=== PATIENT | female | born 1955 | race Caucasian/White ===

== ENCOUNTER 2020-02-18 16:36 | Observation (INO) ==
[2020-02-18] MEDS ORDERED: IOPAMIDOL 100 ML BOTTLE IV ONE (16:37)
--- NOTE | 2020-02-18 16:44 | Emergency Department Note ---
Neuro HPI General Chief Complaint: Stroke Symptoms Stated Complaint: confusion Time Seen by Provider: 02/18/20 16:41 Source: patient, family and RN notes reviewed Mode of arrival: ambulatory History of Present Illness HPI Narrative: Narrative: This patient started having trouble with her memory about an hour ago. She is supposed to have company coming over and could remember that. Could not remember that she had gotten a valid in the mail. Cannot remember which day it is. She said no focal neurologic weakness numbness or tingling. No headache no visual changes. Onset (ago): minute(s) Timing confirmed by: spouse Location: other (Memory) History of same: No Severity: moderate Improves with: none Worsens with: none On Anticoagulants: No Associated symptoms: Reports denies other symptoms Related Data Home Medications Medication Instructions Recorded Confirmed levothyroxine 150 mcg PO QDAY 02/18/20 02/18/20 losartan 25 mg PO QHS 02/18/20 02/18/20 venlafaxine 75 mg PO Q48H 02/18/20 02/18/20 Allergies Allergy/AdvReac Type Severity Reaction Status Date / Time Penicillins Allergy Verified 02/18/20 16:45 Review of Systems ROS ROS Narrative: Narrative: All systems ED: reviewed and negative except as stated. [facility] Narrative Patient History Narrative: Narrative: Medical/Surgical/Family History All Active Problems (Updated 02/19/20 @ 07:27 by Camden Cole MD) Acute CVA (cerebrovascular accident) (Acute) Medical History (Updated 02/19/20 @ 07:27 by Camden Cole MD) Hypertension (Acute) Exam Narrative Narrative: Narrative: Head Head: Present atraumatic, normocephalic and normal inspection Eye Eye: Present normal appearance, PERRL and EOMI; Absent scleral icterus and conjunctival injection ENT ENT: Present normal exam, normal oropharynx and mucous membranes moist Neck Neck: Present normal inspection and full ROM Chest Chest: Present normal inspection and symmetric chest wall rise Respiratory Respiratory: Present normal lung sounds bilaterally; Absent respiratory distress, rales/crackles and wheezes Cardiovascular Cardiovascular: Present regular rate, normal rhythm and normal heart sounds Adbominal Abdominal: Present soft; Absent distention and tenderness Extremities Extremities: Present normal inspection and full ROM; Absent pedal edema and pretibial edema Neurological Neurological: Present alert Expanded Neurological Speech: Present fluid speech CRANIAL NERVES: facial sensation (V): Normal and facial palsy (VII): Normal Motor strength - LUE: 5/5 Motor strength - RUE: 5/5 Motor strength - LLE: 5/5 Motor strength - RLE: 5/5 Psychiatric Psychiatric: Present normal affect Skin Skin: Present warm (WNL) and dry; Absent diaphoresis Course Vital Signs Vital signs: Vital Signs Temperature 96.9 F L 02/18/20 16:37 Pulse Rate 99 H 02/18/20 16:37 Respiratory Rate 16 02/18/20 16:37 Blood Pressure 178/106 02/18/20 16:37 Pulse Oximetry (%) 98 02/18/20 16:37 Temperature 98.2 F 02/19/20 04:01 Pulse Rate 68 02/19/20 05:40 Respiratory Rate 14 02/19/20 05:40 Blood Pressure 129/79 02/19/20 04:01 Pulse Oximetry (%) 99 02/19/20 05:40 MDM MDM Narrative Medical decision making narrative: Narrative: 1699 -this patient could not even remember that she just had a CAT scan. I reviewed the case with the stroke neurologist who interviewed the patient and felt that she was not a TPA candidate. She will be admitted to the hospital here by Dr. Larose. Lab Data Lab results reviewed: Yes I reviewed the patient's lab results. Result diagrams: 02/18/20 16:50 02/19/20 05:05 Labs: Lab Results 02/18/20 02/18/20 02/18/20 Range/Units 16:50 16:50 16:50 WBC 5.6 (4.5-11.0) K/mcL RBC 4.09 (4.00-5.20) M/mcL Hgb 11.8 L (12.0-15.0) g/dL Hct 35.2 L (36.0-48.0) % MCV 86.1 (80.0-100.0) fL MCH 28.9 (26.0-34.0) pg MCHC 33.5 (31.0-36.0) g/dL RDW 15.0 H (11.5-14.5) % Plt Count 294 (140-440) K/mcL MPV 9.6 (7.4-10.4) fL Neut % (Auto) 52.4 (38.0-78.0) % Lymph % (Auto) 32.4 (15.0-49.0) % [place] % (Auto) 11.8 (1.0-12.0) % Eos % (Auto) 2.7 (0.0-7.0) % Baso % (Auto) 0.7 (0.0-2.0) % Lymph # (Auto) 1.82 (1.50-4.80) K/mcL [place] # (Auto) 0.66 (0.10-0.90) K/mcL Eos # (Auto) 0.15 (0.00-0.70) K/mcL Baso # (Auto) 0.04 (0.00-0.20) K/mcL Absolute Neutrophils 2.94 (1.80-8.00) K/mcL POC PT 12.4 (11.9-14.5) sec PT 13.1 (11.9-14.5) sec POC INR 1.0 (0.8-1.2) INR 1.0 (0.9-1.1) APTT 32.0 (20.0-37.0) sec Sodium 132 L (133-145) mmol/L Potassium 3.7 (3.3-5.1) mmol/L Chloride 97 (96-108) mmol/L Carbon Dioxide 23 (22-30) mmol/L Anion Gap 12.0 (8.0-16.0) BUN 11 (8-23) mg/dL Creatinine 0.9 (0.6-1.1) mg/dL POC Creatinine 0.9 (0.6-1.2) mg/dL GFR Calculation 67 Glucose 109 H (70-105) mg/dL Calcium 9.3 (8.6-10.4) mg/dL Total Bilirubin 0.3 (0.1-1.0) mg/dL AST 22 (<32) U/L ALT 13 (<40) U/L Alkaline Phosphatase 65 (39-117) U/L Troponin T (<0.03) ng/mL Total Protein 6.6 (5.9-8.4) gm/dL Albumin 4.7 (3.2-5.2) gm/dL Globulin 1.9 L (2.2-3.7) gm/dL Albumin/Globulin Ratio 2.5 H (1.0-2.3) Triglycerides (<150) mg/dL Cholesterol (<200) mg/dL LDL Cholesterol, Calc (<100) mg/dL Non-HDL Cholesterol (<130) mg/dL HDL Cholesterol (>40) mg/dL Urine Color Urine Appearance (Clear) Urine pH (5.0-9.0) Ur Specific [place] (1.000-1.035) Urine Protein (Negative) mg/dL Urine Glucose (UA) (Negative) mg/dL Urine Ketones (Negative) mg/dL Urine Occult Blood (Negative) mg/dL Urine Nitrate (Negative) Urine Bilirubin (Negative) mg/dL Urine Urobilinogen mg/dL Ur Leukocyte Esterase (Negative) /ug Ur Culture Indicated? 02/18/20 02/18/20 02/18/20 Range/Units 16:50 16:50 17:25 WBC (4.5-11.0) K/mcL RBC (4.00-5.20) M/mcL Hgb (12.0-15.0) g/dL Hct (36.0-48.0) % MCV (80.0-100.0) fL MCH (26.0-34.0) pg MCHC (31.0-36.0) g/dL RDW (11.5-14.5) % Plt Count (140-440) K/mcL MPV (7.4-10.4) fL Neut % (Auto) (38.0-78.0) % Lymph % (Auto) (15.0-49.0) % [place] % (Auto) (1.0-12.0) % Eos % (Auto) (0.0-7.0) % Baso % (Auto) (0.0-2.0) % Lymph # (Auto) (1.50-4.80) K/mcL [place] # (Auto) (0.10-0.90) K/mcL Eos # (Auto) (0.00-0.70) K/mcL Baso # (Auto) (0.00-0.20) K/mcL Absolute Neutrophils (1.80-8.00) K/mcL POC PT (11.9-14.5) sec PT (11.9-14.5) sec POC INR (0.8-1.2) INR (0.9-1.1) APTT (20.0-37.0) sec Sodium (133-145) mmol/L Potassium (3.3-5.1) mmol/L Chloride (96-108) mmol/L Carbon Dioxide (22-30) mmol/L Anion Gap (8.0-16.0) BUN (8-23) mg/dL Creatinine (0.6-1.1) mg/dL POC Creatinine (0.6-1.2) mg/dL GFR Calculation Glucose (70-105) mg/dL Calcium (8.6-10.4) mg/dL Total Bilirubin (0.1-1.0) mg/dL AST (<32) U/L ALT (<40) U/L Alkaline Phosphatase (39-117) U/L Troponin T < 0.01 (<0.03) ng/mL Total Protein (5.9-8.4) gm/dL Albumin (3.2-5.2) gm/dL Globulin (2.2-3.7) gm/dL Albumin/Globulin Ratio (1.0-2.3) Triglycerides 96 (<150) mg/dL Cholesterol 215 H (<200) mg/dL LDL Cholesterol, Calc 93 (<100) mg/dL Non-HDL Cholesterol 112 (<130) mg/dL HDL Cholesterol 103 (>40) mg/dL Urine Color Yellow Urine Appearance Clear (Clear) Urine pH 7.0 (5.0-9.0) Ur Specific [place] 1.011 (1.000-1.035) Urine Protein Negative (Negative) mg/dL Urine Glucose (UA) Negative (Negative) mg/dL Urine Ketones Negative (Negative) mg/dL Urine Occult Blood Negative (Negative) mg/dL Urine Nitrate Negative (Negative) Urine Bilirubin Negative (Negative) mg/dL Urine Urobilinogen Negative mg/dL Ur Leukocyte Esterase Negative (Negative) /ug Ur Culture Indicated? No Radiology Data Radiology results reviewed: Yes I reviewed the patient's radiology results. Radiology results narrative: CT of brain and CTA of head and neck were negative. Discharge Plan Patient/Caregiver Discharge Instructions Pt seen by RECORD CUTTER/PA only: No Clinical Impression: Acute CVA (cerebrovascular accident) Patient Disposition: Xfer As Inpt ([facility]) Discharge Date/Time: 02/18/20 20:37 Discharge Comment: admit [id number]
[2020-02-18] MEDS ORDERED: LABETALOL 5 MG/ML ML IV ONE (16:55)
--- NOTE | 2020-02-18 17:14 | Cat Scan Report ---
CLINICAL INFORMATION: COMPARISON: None. TECHNIQUE: 2.5 mm helical slices were obtained in the skull base to vertex. Following reconstruction, axial reformatted images were reviewed at bone and parenchymal windows. The exam was performed using radiation dose optimization techniques including, but not limited to, automated exposure control, adjustment of the mA and/or kV according to patient size and use of iterative reconstruction technique. FINDINGS: The ventricles, sulci, fissures, and cisterns are slightly enlarged compatible with mild age-related atrophy. There is minimal chronic ischemic changes in the deep cerebral white matter.. No extra-axial fluid collections are identified. There is no evidence of hemorrhage, mass effect, or edema. Bone windows show no osseous abnormality. IMPRESSION: Minimal atrophy and chronic ischemic changes in the deep cerebral white matter - typical for age.. Interpreted and Authenticated by: Nathan Lua 02/18/20
[2020-02-18 17:19] LABS: POC Creatinine 0.9 mg/dL (0.6-1.2)
[2020-02-18 17:34] LABS: Basophils # (Auto) 0.04 K/mcL (0.00-0.20); Basophils % (Auto) 0.7 % (0.0-2.0); Eosinophils # (Auto) 0.15 K/mcL (0.00-0.70); Eosinophils % (Auto) 2.7 % (0.0-7.0); Hematocrit 35.2 % (36.0-48.0); Hemoglobin 11.8 g/dL (12.0-15.0); Lymphocytes # (Auto) 1.82 K/mcL (1.50-4.80); Lymphocytes % (Auto) 32.4 % (15.0-49.0); Mean Cell Volume 86.1 fL (80.0-100.0); Mean Corpuscular HGB Conc 33.5 g/dL (31.0-36.0); Mean Platelet Volume 9.6 fL (7.4-10.4); Monocytes # (Auto) 0.66 K/mcL (0.10-0.90); Monocytes % (Auto) 11.8 % (1.0-12.0); Neutrophils % (Auto) 52.4 % (38.0-78.0); Platelet Count 294 K/mcL (140-440); RBC 4.09 M/mcL (4.00-5.20); WBC 5.6 K/mcL (4.5-11.0)
[2020-02-18] MEDS ORDERED: ASPIRIN 81 MG TAB.CHEW CHEWED ONE (17:42)
[2020-02-18 17:44] LABS: Prothrombin Time 13.1 sec (11.9-14.5)
[2020-02-18] MEDS ORDERED: LACTATED RINGERS 1,000 ML IV SCH (17:45)
[2020-02-18 17:57] LABS: ALT/SGPT 13 U/L (<40); AST/SGOT 22 U/L (<32); Albumin 4.7 gm/dL (3.2-5.2); Albumin/Globulin Ratio 2.5 (1.0-2.3); Alkaline Phosphatase 65 U/L (39-117); Bilirubin,Total 0.3 mg/dL (0.1-1.0); Blood Urea Nitrogen 11 mg/dL (8-23); Calcium 9.3 mg/dL (8.6-10.4); Carbon Dioxide 23 mmol/L (22-30); Chloride 97 mmol/L (96-108); Globulin 1.9 gm/dL (2.2-3.7); Glomerular Filtration Rate 67; Glucose 109 mg/dL (70-105)
[2020-02-18 18:08] LABS: POC Pro Time 12.4 sec (11.9-14.5)
--- NOTE | 2020-02-18 18:25 | Cat Scan Report ---
CLINICAL INFORMATION: Confusion. Possible CVA COMPARISON: None. TECHNIQUE: 80 cc of Isovue-370 were injected intravenously , and using SmartPrep to maximize cerebral arterial opacification, 0.625 mm helical slices were obtained from the skull base through the cerebral vertex. Following reconstruction , sagittal, coronal and axial reformatted images were processed and reviewed at multiple windows and levels. 3D volume rendered and MIP images were acquired at a independent workstation. The exam was performed using radiation dose optimization techniques including, but not limited to, automated exposure control, adjustment of the mA and/or kV according to patient size and use of iterative reconstruction technique. FINDINGS: The intracranial internal carotid, anterior middle cerebral, intracranial vertebral, basilar and posterior cerebral arteries are well-opacified and normal in contour and caliber. No evidence of thrombus or embolus. No arterial vascular abnormality. The superficial and deep cerebral veins and deep venous sinuses are widely patent. IMPRESSION: Normal Interpreted and Authenticated by: Nathan Lua 02/18/20
--- NOTE | 2020-02-18 18:30 | Cat Scan Report ---
CLINICAL INFORMATION: COMPARISON: None. TECHNIQUE: 80 cc of Isovue-370 were injected intravenously, and using SmartPrep to maximize arterial opacification, 0.625 mm helical slices were obtained from the thoracic aortic arch through the [place] of [place]. Following reconstruction, 2.5mm sagittal, coronal and axial reformatted images were processed and reviewed at standard and bone algorithm/window. 3-D volume rendered, CPR and MIP images were processed using a [employer] work station.The exam was performed using radiation dose optimization techniques including, but not limited to, automated exposure control, adjustment of the mA and/or kV according to patient size and use of iterative reconstruction technique. FINDINGS: The thoracic aorta is normal in diameter. Aortic branching is conventional. The brachiocephalic, both subclavian, both common, internal and external carotid artery and vertebral arteries are widely patent. No soft tissue abnormalities. IMPRESSION: Normal exam Interpreted and Authenticated by: Nathan Lua 02/18/20
--- NOTE | 2020-02-18 19:20 | Internal Med History&Physical ---
HPI History of Present Illness Patient information: Note initiated : 02/18/20 at 7:20 pm Service Date, if different from initiated Date: [] Patient: Charlene Moore 64 y/o F admitted on for confusion. Chief Complaint: [] History of present illness: Ms. Moore is a 64-year-old female fairly healthy except for history of HTN/anxiety/hypothyroidism who presents with acute onset amnesia this afternoon. Patient lives with her Emani and was expecting guests this afternoon. Symptoms were brief without loss of consciousness or vertigo or dizziness or unilateral weakness. She denied associated thunderclap headache or diplopia or nausea. She denies prior similar episode. She was thereafter brought into the ER for evaluation. Initial work-up was negative and head CT/CT angiogram head and neck. Stroke neurology was consulted and patient was started on aspirin and recommended patient to be observed overnight while for completeness of work-up she will undergo further neuroimaging. Patient amnesia shortly resolved following arrival to the ER however she could not recollect events between 1 PM until she presents to the ER. Subsequently hospitalist service was consulted for admission At the time of my evaluation patient is alert and oriented. She is accompanied with her . She was able to endorse history as above. She denies fever, chills, change medications, similar prior episodes, loss of consciousness or gigi or head trauma. She further denies dysarthria, dysphagia or diplopia. Review of systems A 10 point review system was performed and is negative except for ones discussed above Past medical history Hypertension Hyperlipidemia Anxiety disorder Social history and lives with her No history of smoking or alcoholism PFSH PFSH All Active Problems (Updated 02/19/20 @ 07:27 by Camden Cole MD) Acute CVA (cerebrovascular accident) (Acute) Medical History (Updated 02/19/20 @ 07:27 by Camden Cole MD) Hypertension (Acute) Social History smoking status: Never smoker MEDS/ALLERGIES Home Medications and Allergies Home Medications Medication Instructions Recorded Confirmed Type levothyroxine 150 mcg PO QDAY 02/18/20 02/18/20 History losartan 25 mg PO QHS 02/18/20 02/18/20 History venlafaxine 75 mg PO Q48H 02/18/20 02/18/20 History Allergies Allergy/AdvReac Type Severity Reaction Status Date / Time Penicillins Allergy Verified 02/18/20 16:45 EXAM Constitutional Vitals: Temp Pulse Resp BP Pulse Ox 96.9 F L 80 20 169/94 100 02/18/20 16:37 02/18/20 19:06 02/18/20 19:06 02/18/20 19:06 02/18/20 19:06 Minimally anxious Head normocephalic Oral cavity moist No ear nose discharge Eye movement symmetrical Neck supple no lymphadenopathy S1-S2 regular on monitor Nonlabored breathing Nondistended nontender abdomen Lower extremity no cyanosis clubbing or joint swelling Skin no suspicious lesion Psych anxious but alert cooperative Neuro normal higher function, no unilateral weakness DATA Data Completed and Pending Labs: Labs from last 24 hours 02/18/20 02/18/20 02/18/20 17:25 16:50 16:50 WBC RBC Hgb Hct MCV MCH MCHC RDW Plt Count MPV Neut % (Auto) Lymph % (Auto) [place] % (Auto) Eos % (Auto) Baso % (Auto) Lymph # (Auto) [place] # (Auto) Eos # (Auto) Baso # (Auto) Absolute Neutrophils POC PT PT POC INR INR APTT Sodium 132 L Potassium 3.7 Chloride 97 Carbon Dioxide 23 Anion Gap 12.0 BUN 11 Creatinine 0.9 POC Creatinine 0.9 GFR Calculation 67 Glucose 109 H Calcium 9.3 Total Bilirubin 0.3 AST 22 ALT 13 Alkaline Phosphatase 65 Troponin T < 0.01 Total Protein 6.6 Albumin 4.7 Globulin 1.9 L Albumin/Globulin Ratio 2.5 H Urine Color Pending Urine Appearance Pending Urine pH Pending Ur Specific [place] Pending Urine Protein Pending Urine Glucose (UA) Pending Urine Ketones Pending Urine Occult Blood Pending Urine Nitrate Pending Urine Bilirubin Pending Urine Urobilinogen Pending Ur Leukocyte Esterase Pending 02/18/20 02/18/20 16:50 16:50 WBC 5.6 RBC 4.09 Hgb 11.8 L Hct 35.2 L MCV 86.1 MCH 28.9 MCHC 33.5 RDW 15.0 H Plt Count 294 MPV 9.6 Neut % (Auto) 52.4 Lymph % (Auto) 32.4 [place] % (Auto) 11.8 Eos % (Auto) 2.7 Baso % (Auto) 0.7 Lymph # (Auto) 1.82 [place] # (Auto) 0.66 Eos # (Auto) 0.15 Baso # (Auto) 0.04 Absolute Neutrophils 2.94 POC PT 12.4 PT 13.1 POC INR 1.0 INR 1.0 APTT 32.0 Sodium Potassium Chloride Carbon Dioxide Anion Gap BUN Creatinine POC Creatinine GFR Calculation Glucose Calcium Total Bilirubin AST ALT Alkaline Phosphatase Troponin T Total Protein Albumin Globulin Albumin/Globulin Ratio Urine Color Urine Appearance Urine pH Ur Specific [place] Urine Protein Urine Glucose (UA) Urine Ketones Urine Occult Blood Urine Nitrate Urine Bilirubin Urine Urobilinogen Ur Leukocyte Esterase A/P Narrative A/P Narrative: * Transient amnesic episode-rule out CVA. Brain MRI/echocardiogram in a.m. Head CT/CT angiogram head and neck unremarkable. Continue permissive hypertension/close neurochecks and ICU care. Started on aspirin. Check lipid. * History of hypertension continue home dose losartan * Anxiety disorder continue home dose venlafaxine * Hypothyroidism continue oxygen * Prophylaxis heparin Plan * Observation telemetry admit * Neuroimaging * MRI/ECHO * ASA statin * Neurochecks Time Spent With Patient Time: Total time spent is greater than 50% in coordination of care (as documented) at patient's floor/unit and/or counseling patient: QUALITY Stroke Onset of Symptoms Date: 02/18/20 Onset of Symptoms Time: 15:45 Symptom Onset Unknown: No
[2020-02-18 20:28] LABS: Appearance,Urine CLEAR (Clear); Bilirubin,Urine Negative (Negative); Color,Urine YELLOW; Culture Indicated,Urine No; Glucose,Urine (UA) Negative (Negative); Ketones,Urine Negative (Negative); Leukocyte Esterase,Urine Negative /ug (Negative); Nitrate,Urine Negative (Negative); Protein,Urine Negative (Negative); Specific Gravity,Urine 1.011 (1.000-1.035); Urine Blood Negative (Negative); Urobilinogen,Urine Negative
[2020-02-18] MEDS ORDERED: MELATONIN 3 MG TABLET PO PRN (20:42)
[2020-02-18] MEDS ORDERED: ONDANSETRON 4 MG ODT TABLET SL PRN (20:42)
[2020-02-18] MEDS ORDERED: BISACODYL 10 MG SUPP.RECT PR PRN (20:42)
[2020-02-18] MEDS ORDERED: POLYETHYLENE GLYCOL 3350 17 GM PACKET PO PRN (20:42)
[2020-02-18] MEDS ORDERED: ACETAMINOPHEN 650 MG/65 ML BOTTLE IV PRN (20:42)
[2020-02-18] MEDS ORDERED: POTASSIUM CHLORIDE 40 MEQ in DEXTROSE 5% IN WATER 500 ML IV PRN (20:42)
[2020-02-18] MEDS ORDERED: MAGNESIUM SULFATE 2 GM/50 ML BAG IV PRN (20:42)
[2020-02-18] MEDS ORDERED: POTASSIUM CHLORIDE 20 MEQ PACKET PO PRN (20:42)
[2020-02-18] MEDS ORDERED: ONDANSETRON 4 MG/2 ML VIAL IV PRN (20:42)
[2020-02-18] MEDS ORDERED: ACETAMINOPHEN 325 MG TABLET PO PRN (20:42)
[2020-02-18] MEDS ORDERED: hydrALAZINE 20 MG/ML VIAL IV PRN (20:42)
[2020-02-18] MEDS ORDERED: SENNOSIDES/DOCUSATE SODIUM 1 TAB TABLET PO SCH (21:00)
[2020-02-18] MEDS: DOCUSATE SODIUM 100 MG CAPSULE PO SCH (21:56)
[2020-02-18] MEDS: 0.9 % SODIUM CHLORIDE 10 ML SYRINGE IV SCH (21:57)
[2020-02-18] MEDS ORDERED: VENLAFAXINE 75 MG CAP.XL.24H PO SCH (22:00)
[2020-02-18] MEDS: HEPARIN 5,000 UNIT/ML VIAL SQ SCH (22:04)
[2020-02-18 22:13] LABS: HDL Cholesterol 103 mg/dL (>40); LDL Cholesterol,Calculated 93 mg/dL (<100); Non-HDL Cholesterol 112 mg/dL (<130); Triglycerides 96 mg/dL (<150)
[2020-02-18] MEDS ORDERED: LOSARTAN 25 MG TABLET PO ONE (23:29)
[2020-02-19] MEDS: 0.9 % SODIUM CHLORIDE 10 ML SYRINGE IV SCH (05:35)
[2020-02-19 07:26] LABS: ALT/SGPT 12 U/L (<40); AST/SGOT 18 U/L (<32); Albumin 4.2 gm/dL (3.2-5.2); Albumin/Globulin Ratio 2.5 (1.0-2.3); Alkaline Phosphatase 50 U/L (39-117); Bilirubin,Direct < 0.2 mg/dL (<0.3); Bilirubin,Total 0.3 mg/dL (0.1-1.0); Blood Urea Nitrogen 7 mg/dL (8-23); Calcium 9.1 mg/dL (8.6-10.4); Carbon Dioxide 24 mmol/L (22-30); Chloride 105 mmol/L (96-108); Globulin 1.7 gm/dL (2.2-3.7); Glomerular Filtration Rate 67; Glucose 95 mg/dL (70-105); HDL Cholesterol 96 mg/dL (>40); LDL Cholesterol,Calculated 101 mg/dL (<100); Lactate Dehydrogenase 172 U/L (135-225); Non-HDL Cholesterol 112 mg/dL (<130); Phosphorous 2.4 mg/dL (2.5-4.5); Triglycerides 58 mg/dL (<150); Uric Acid 3.5 mg/dL (2.5-8.0)
[2020-02-19] MEDS ORDERED: LEVOTHYROXINE 150 MCG TABLET PO SCH (07:30)
[2020-02-19 08:46] LABS: Eosinophils % (Manual) 4 % (0-7); Hematocrit 34.4 % (36.0-48.0); Hemoglobin 11.5 g/dL (12.0-15.0); Lymphocytes % 32 % (15-49); Mean Cell Volume 86.2 fL (80.0-100.0); Mean Corpuscular HGB Conc 33.4 g/dL (31.0-36.0); Mean Platelet Volume 9.8 fL (7.4-10.4); Monocytes % (Manual) 8 % (1-12); Platelet Count 266 K/mcL (140-440); Platelet Estimate NORMAL (Normal); RBC 3.99 M/mcL (4.00-5.20); RBC Morphology NORMAL (Normal); Red Cell Distribution Width 15.2 % (11.5-14.5); Segmented Neutrophils % 56 % (38-78); WBC 4.7 K/mcL (4.5-11.0)
--- NOTE | 2020-02-19 08:53 | Magnetic Resonance Report ---
INDICATION: Transient global amnesia COMPARISON: Previous brain CT scan dated 02/18/2020 TECHNIQUE: Sagittal T1 FLAIR images. Axial DWI, T1 FLAIR, T2 FLAIR, T2, GRE. Coronal T2 FSE. FINDINGS: Cerebral hemispheres: Possible very small focus of restricted diffusion in the medial right temporal lobe adjacent to the temporal horn of the right lateral ventricle. This measures approximately 3 mm in diameter. There appears to be a small associated ADC abnormality. Findings are consistent with an acute lacunar infarction. No corresponding signal abnormality FLAIR or T2-weighted images. No susceptibility. No hemorrhagic abnormality. No intra-axial signal abnormality or localized mass effect. Brain volume is within normal limits for age. No hydrocephalus. Brain stem and cerebellum:No intra-axial abnormalities. Extra-axial:Normal flow void within vessels at the base of the brain. No subdural or epidural hematoma. No detectable subarachnoid hemorrhage Cavernous sinuses and basilar cisterns are normal. Skull:No calvarial lesions. No lytic lesion. No detectable fracture. Temporal bones:Mastoid sinuses are normal. No fluid or soft tissue intensity within either middle ear. Inner ear structures are normal Orbits, facial soft tissues:Globes are normal. No intraorbital abnormality. Facial soft tissues are negative Paranasal sinuses:Maxillary, frontal, ethmoid sinuses are negative. Sphenoid sinuses are negative. No mucosal thickening. No air-fluid levels. No discrete soft tissue mass IMPRESSION: 1. Possible 3 mm acute lacunar infarction in the medial right temporal lobe 2. Otherwise negative MRI scan of brain and posterior fossa Interpreted and Authenticated by: Nathan Nieves 02/19/20
[2020-02-19] MEDS ORDERED: ASPIRIN 81 MG TAB.CHEW CHEWED SCH (09:00)
[2020-02-19] MEDS ORDERED: ATORVASTATIN 40 MG TABLET PO SCH (09:00)
[2020-02-19] MEDS ORDERED: MULTIVIT,THER IRON,CA,FA & MIN 1 TABLET PO SCH (09:00)
[2020-02-19] MEDS: HEPARIN 5,000 UNIT/ML VIAL SQ SCH (09:03)
[2020-02-19] MEDS: VENLAFAXINE 75 MG CAP.XL.24H PO SCH ×2 (09:03→10:42)
[2020-02-19] MEDS: DOCUSATE SODIUM 100 MG CAPSULE PO SCH (09:03)
--- NOTE | 2020-02-19 10:55 | Discharge Summary ---
Discharge Provider Provider Patient information: Note initiated : 02/19/20 at 10:52 am Service Date, if different from initiated Date: [] Patient: Charlene Moore 64 y/o F admitted on 02/18/20 for confusion. Chief Complaint: Discharge diagnosis * Right temporal ischemic CVA, lacunar, continue aspirin/statin. Follow-up primary care physician in 5 to 7 days. No telemetry events or arrhythmia. * History of hypertension continue home dose losartan * Anxiety disorder continue home dose venlafaxine * Hypothyroidism continue levothyroxine Brief hospital course Ms. Moore is a 64-year-old female fairly healthy except for history of HTN/anx iety/hypothyroidism who presents with acute onset amnesia this afternoon. Patient lives with her Emani and was expecting guests this afternoon. Symptoms were brief without loss of consciousness or vertigo or dizziness or unilateral weakness. She denied associated thunderclap headache or diplopia or nausea. She denies prior similar episode. She was thereafter brought into the ER for evaluation. Initial work-up was negative and head CT/CT angiogram head and neck. Stroke neurology was consulted and patient was started on aspirin and recommended patient to be observed overnight while for completeness of work-up she will undergo further neuroimaging. Patient amnesia shortly resolved following arrival to the ER however she could not recollect events between 1 PM until she presents to the ER. Subsequently hospitalist service was consulted for admission At the time of my evaluation patient is alert and oriented. She is accompanied with her . She was able to endorse history as above. She denies fever, chills, change medications, similar prior episodes, loss of consciousness or prior head trauma. She further denies dysarthria, dysphagia or diplopia. 02/18-patient currently asymptomatic. MRI reveals a 3 mm right temporal lacunar infarct. Currently on aspirin/statin. Discussed treatment plan and discharge follow-up with primary care physician. Reviewed neuroimaging with patient. Echocardiogram pending. A copy will be faxed to Dr. Calderon. No overnight telemetry events. Date of admission: 02/18/20 20:37 Discharge date: 02/19/20 Primary care physician: Car Calderon Consults: 02/18/20 Consult to Physician [CONS] Stat Comment: Consulting Provider: Jaylen Rios Reason For Exam: Physician to Consult Discharge Meds Discharge Medications Home Medications levothyroxine 150 mcg PO QDAY 02/18/20 [History Confirmed 02/18/20 Last Taken 02/18/20 06:00] losartan 25 mg PO QHS 02/18/20 [History Confirmed 02/18/20 Last Taken 02/17/20 21:00] venlafaxine 75 mg PO Q48H 02/18/20 [History Confirmed 02/18/20 Last Taken 02/17/20 21:00] aspirin 324 mg CHEWED DAILY #30 tab 02/19/20 [Rx Last Taken Unknown] atorvastatin 40 mg PO DAILY #30 tab 02/19/20 [Rx Last Taken Unknown] COURSE Hospital Course Hospital course: . Discharge diagnosis: . Time Spent with Patient Time attestation: Total time spent providing and/or coordinating discharge services: EXAM Constitutional Vitals: Temp Pulse Resp BP Pulse Ox 97.9 F 85 18 134/80 100 02/19/20 07:00 02/19/20 08:00 02/19/20 09:00 02/19/20 09:00 02/19/20 09:00 Discharge Data Data Completed and Pending Labs on day of discharge: Labs from last 24 hours 02/19/20 02/19/20 02/18/20 05:05 05:05 17:25 WBC 4.7 RBC 3.99 L Hgb 11.5 L Hct 34.4 L MCV 86.2 MCH 28.8 MCHC 33.4 RDW 15.2 H Plt Count 266 MPV 9.8 Neut % (Auto) Lymph % (Auto) [place] % (Auto) Eos % (Auto) Baso % (Auto) Lymph # (Auto) [place] # (Auto) Eos # (Auto) Baso # (Auto) Seg Neutrophils % 56 Band Neutrophils % Pending Lymphocytes % 32 Monocytes % (Manual) 8 Eosinophils % (Manual) 4 Absolute Neutrophils Platelet Estimate Normal RBC Morphology Normal POC PT PT POC INR INR APTT Sodium 139 Potassium 4.3 Chloride 105 Carbon Dioxide 24 Anion Gap 10.0 BUN 7 L Creatinine 0.9 POC Creatinine GFR Calculation 67 Glucose 95 Uric Acid 3.5 Calcium 9.1 Phosphorus 2.4 L Magnesium 2.3 Total Bilirubin 0.3 Direct Bilirubin < 0.2 GGT 12 AST 18 ALT 12 Alkaline Phosphatase 50 Lactate Dehydrogenase 172 Troponin T Total Protein 5.9 Albumin 4.2 Globulin 1.7 L Albumin/Globulin Ratio 2.5 H Triglycerides 58 Cholesterol 208 H LDL Cholesterol, Calc 101 H Non-HDL Cholesterol 112 HDL Cholesterol 96 Urine Color Yellow Urine Appearance Clear Urine pH 7.0 Ur Specific [place] 1.011 Urine Protein Negative Urine Glucose (UA) Negative Urine Ketones Negative Urine Occult Blood Negative Urine Nitrate Negative Urine Bilirubin Negative Urine Urobilinogen Negative Ur Leukocyte Esterase Negative Ur Culture Indicated? No 02/18/20 02/18/20 02/18/20 16:50 16:50 16:50 WBC RBC Hgb Hct MCV MCH MCHC RDW Plt Count MPV Neut % (Auto) Lymph % (Auto) [place] % (Auto) Eos % (Auto) Baso % (Auto) Lymph # (Auto) [place] # (Auto) Eos # (Auto) Baso # (Auto) Seg Neutrophils % Band Neutrophils % Lymphocytes % Monocytes % (Manual) Eosinophils % (Manual) Absolute Neutrophils Platelet Estimate RBC Morphology POC PT PT POC INR INR APTT Sodium 132 L Potassium 3.7 Chloride 97 Carbon Dioxide 23 Anion Gap 12.0 BUN 11 Creatinine 0.9 POC Creatinine 0.9 GFR Calculation 67 Glucose 109 H Uric Acid Calcium 9.3 Phosphorus Magnesium Total Bilirubin 0.3 Direct Bilirubin GGT AST 22 ALT 13 Alkaline Phosphatase 65 Lactate Dehydrogenase Troponin T < 0.01 Total Protein 6.6 Albumin 4.7 Globulin 1.9 L Albumin/Globulin Ratio 2.5 H Triglycerides 96 Cholesterol 215 H LDL Cholesterol, Calc 93 Non-HDL Cholesterol 112 HDL Cholesterol 103 Urine Color Urine Appearance Urine pH Ur Specific [place] Urine Protein Urine Glucose (UA) Urine Ketones Urine Occult Blood Urine Nitrate Urine Bilirubin Urine Urobilinogen Ur Leukocyte Esterase Ur Culture Indicated? 02/18/20 02/18/20 16:50 16:50 WBC 5.6 RBC 4.09 Hgb 11.8 L Hct 35.2 L MCV 86.1 MCH 28.9 MCHC 33.5 RDW 15.0 H Plt Count 294 MPV 9.6 Neut % (Auto) 52.4 Lymph % (Auto) 32.4 [place] % (Auto) 11.8 Eos % (Auto) 2.7 Baso % (Auto) 0.7 Lymph # (Auto) 1.82 [place] # (Auto) 0.66 Eos # (Auto) 0.15 Baso # (Auto) 0.04 Seg Neutrophils % Band Neutrophils % Lymphocytes % Monocytes % (Manual) Eosinophils % (Manual) Absolute Neutrophils 2.94 Platelet Estimate RBC Morphology POC PT 12.4 PT 13.1 POC INR 1.0 INR 1.0 APTT 32.0 Sodium Potassium Chloride Carbon Dioxide Anion Gap BUN Creatinine POC Creatinine GFR Calculation Glucose Uric Acid Calcium Phosphorus Magnesium Total Bilirubin Direct Bilirubin GGT AST ALT Alkaline Phosphatase Lactate Dehydrogenase Troponin T Total Protein Albumin Globulin Albumin/Globulin Ratio Triglycerides Cholesterol LDL Cholesterol, Calc Non-HDL Cholesterol HDL Cholesterol Urine Color Urine Appearance Urine pH Ur Specific [place] Urine Protein Urine Glucose (UA) Urine Ketones Urine Occult Blood Urine Nitrate Urine Bilirubin Urine Urobilinogen Ur Leukocyte Esterase Ur Culture Indicated? Discharge Plan Patient/Caregiver Discharge Instructions Activity: increase activity as tolerated Diet: Regular Diet Instructions: Aspirin (By mouth), Cholesterol and Your Health (GEN), Ischemic Stroke (GEN) Activity Restrictions/Additional Instructions: Follow-up PCP in 5 to 7 days Continue aspirin/statin as advised Return to ER if lightheadedness dizziness, confusion or weakness noted This discharge packet is provided to you to help keep you informed about your care. We want to ensure you get everything you need when you go home. You will also be receiving a call from us in a few days to follow up with you and see how you are doing since your discharge. This gives us a chance to listen to any concerns you maybe experiencing since you were discharged or any additional needs you may have, as well as providing us feedback on your care experience. We strive to always provide excellent care and thank you for your feedback and for choosing [facility]. Prescriptions: New atorvastatin 40 mg Tablet 40 mg PO DAILY Qty: 30 RF: 0 aspirin 81 mg Tablet,Chewable 324 mg CHEWED DAILY Qty: 30 RF: 0 Continued venlafaxine 75 mg Capsule,Extended Release 24hr 75 mg PO Q48H RF: 0 levothyroxine 150 mcg Tablet 150 mcg PO QDAY RF: 0 losartan 25 mg Tablet 25 mg PO QHS RF: 0 Follow Up Plan Follow up with: Car Calderon DO [Primary Care Provider] - 02/22/20 1:20 pm Patient Disposition: Home, Self-Care Rehab Potential: Fair I certify that the patient requires SNF services: No Overall status at discharge: patient is progressing back to baseline Discharge Orders: Discharge Order (Routine); Ordered 02/19/20 Ordered By: Jaylen Rios
[2020-02-19] MEDS ORDERED: LOSARTAN 25 MG TABLET PO SCH (21:00)
== END 2020-02-19 12:15 | disposition home or self-care (01) ==
LOC: ICU 16:36 → ED 16:36 → ICU 20:37
PROVIDERS: ADMIT Internal Medicine; ATTEND Internal Medicine